=== PATIENT | female | born 1995 | race African-American/Black ===

== ENCOUNTER 2024-04-26 02:00 | Inpatient (IN) | payer OTHER ==
[2024-04-26] MEDS ORDERED: FENTANYL CITRATE/PF 50 MCG/ML VIAL ONE (02:49)
[2024-04-26] MEDS ORDERED: morphine SULFATE/PF 1 MG/2 ML (2cc Syringe - QUVA) ONE (02:49)
[2024-04-26] MEDS ORDERED: DEXAMETHASONE SOD PHOSPHATE 4 MG/1 ML VIAL ONE (02:54)
[2024-04-26] MEDS ORDERED: ONDANSETRON 4 MG/2 ML VIAL ONE (02:54)
[2024-04-26] MEDS: CITRIC ACID/SODIUM CITRATE 30 ML UNIT-DOSE CUP PO ONE (03:00)
[2024-04-26 03:08] LABS: BASO % 1.2 % (0-2.0); EOS % 1.8 % (0-4.5); HEMOGLOBIN 13.6 GM/dL (10.7-15.3); LYMPH % 26.3 % (8-40); MCHC 34.8 g/dl (32.0-36.0); MEAN PLT VOLUME 8.8 fl (7.5-11.1); MONO % 9.6 % (3.8-10.2); NEUT % 61.1 % (42.8-82.8); PLATELET COUNT 182 10^3/uL (134-434); RBC 4.24 M/mm3 (3.60-5.2); RDW 14.7 % (11.6-15.6); WHITE BLOOD COUNT 8.7 K/mm3 (4.0-10.0)
[2024-04-26 03:20] LABS: INR 0.91 (0.83-1.09); PROTHROMBIN TIME (PATIENT) 10.5 SEC (9.7-13.0)
[2024-04-26 03:23] LABS: ACTIVATED PTT 27.9 SECONDS (25.2-36.5)
[2024-04-26] MEDS ORDERED: AZITHROMYCIN IVPB 500 MG/250 ML BAG IVPB ONE (03:33)
[2024-04-26 03:36] LABS: CHLORIDE 108 mmol/L (98-107); POTASSIUM 4.1 mmol/L (3.5-5.1); SODIUM 140 mmol/L (136-145)
[2024-04-26 03:38] LABS: ANION GAP 9 mmol/L (4-13); BLOOD UREA NITROGEN 5.4 mg/dL (7-18); CALCIUM 9.2 mg/dL (8.5-10.1); CO2 23 mmol/L (21-32); GLUCOSE,RANDOM 95 mg/dL (74-106)
[2024-04-26 03:41] LABS: CREATININE 0.7 mg/dL (0.55-1.3)
[2024-04-26] MEDS ORDERED: ceFAZolin SODIUM 1 GM VIAL ONE (03:53)
[2024-04-26] MEDS ORDERED: METHYLERGONOVINE MALEATE 0.2 MG/1 ML AMP IM PRN (04:22)
[2024-04-26] MEDS: OXYTOCIN 20 UNITS in 0.9% NS 20 UNIT/1,000 ML INFUS.BAG IV SCH (04:30)
[2024-04-26 04:40] LABS: HIV INTERPRETATION NEGATIVE (NEGATIVE)
[2024-04-26] MEDS ORDERED: ONDANSETRON 4 MG/2 ML VIAL IVPUSH PRN (04:40)
[2024-04-26 05:19] VITALS: BMI 28.9
[2024-04-26] MEDS ORDERED: ACETAMINOPHEN INJECTION 100 ML ONE (05:49)
[2024-04-26] MEDS: ACETAMINOPHEN 1000 MG/100 ML BAG IVPB PRN (05:55)
[2024-04-26] MEDS: IBUPROFEN 800 MG/8 ML IJ IVPB PRN (09:44)
[2024-04-26] MEDS ORDERED: oxyCODONE HCL 5 MG TABLET PO PRN (16:22)
[2024-04-27] MEDS ORDERED: BISACODYL 10 MG SUPP.RECT RC PRN (04:22)
[2024-04-27] MEDS: SIMETHICONE 80 MG TAB.CHEW (FP) PO PRN (06:43)
[2024-04-27] MEDS: oxyCODONE HCL 5 MG TABLET PO PRN (06:44)
[2024-04-27 07:31] LABS: BASO % 0.5 % (0-2.0); EOS % 0.8 % (0-4.5); HEMATOCRIT 34.5 % (32.4-45.2); HEMOGLOBIN 11.9 GM/dL (10.7-15.3); LYMPH % 17.9 % (8-40); MCH 31.9 pg (25.7-33.7); MCHC 34.4 g/dl (32.0-36.0); MEAN CELL VOLUME 92.5 fl (80-96); MEAN PLT VOLUME 8.5 fl (7.5-11.1); MONO % 5.6 % (3.8-10.2); NEUT % 75.2 % (42.8-82.8); PLATELET COUNT 162 10^3/uL (134-434); RBC 3.73 M/mm3 (3.60-5.2); WHITE BLOOD COUNT 11.5 K/mm3 (4.0-10.0)
[2024-04-27] MEDS: DIPHTH,PERTUSS(ACELL),TET 0.5 ML DISP.SYRIN IM ONE (11:24)
[2024-04-27] MEDS: ENOXAPARIN NA (PORCINE) 40 MG/0.4 ML DISP.SYRIN SQ SCH (11:25)
[2024-04-27] MEDS: IBUPROFEN 600 MG TABLET (FP) PO PRN (11:37)
[2024-04-27] MEDS: ACETAMINOPHEN 325 MG TABLET (FP) PO PRN (13:23)
[2024-04-28 21:17] VITALS: BP 128/80
[2024-04-29 07:48] LABS: BASO % 0.5 % (0-2.0); EOS % 4.5 % (0-4.5); HEMATOCRIT 31.9 % (32.4-45.2); LYMPH % 14.5 % (8-40); MCH 32.1 pg (25.7-33.7); MCHC 34.4 g/dl (32.0-36.0); MEAN CELL VOLUME 93.4 fl (80-96); MEAN PLT VOLUME 8.1 fl (7.5-11.1); MONO % 6.5 % (3.8-10.2); PLATELET COUNT 189 10^3/uL (134-434); RBC 3.41 M/mm3 (3.60-5.2); WHITE BLOOD COUNT 8.6 K/mm3 (4.0-10.0)
[2024-04-29 09:24] VITALS: PULSE 102; RESP 17; TEMP 98
== END 2024-04-29 13:15 | disposition home or self-care (01) | DRG 540 ==
LOC: JLDR 02:00 → J3W 07:45
PROVIDERS: ADMIT Obstetrics & Gynecology; ATTEND Obstetrics & Gynecology
PROC: 10D00Z1 Extraction of Products of Conception, Low, Open Approach (ICD-10-PCS; principal; 2024-04-26)
DX: O32.1XX0 Maternal care for breech presentation, not applicable or unspecified (principal); O09.33 Supervision of pregnancy with insufficient antenatal care, third trimester; Z3A.38 38 weeks gestation of pregnancy; Z37.0 Single live birth
CPT/HCPCS: 36415; 80048; 85025; 85610; 85730; 86780; 86803; 86850; 86900; 86901; 87340; 87389; 87517; 88307-TC; 90715; 94010; J0131